=== PATIENT | female | born 1940 | race Caucasian/White ===

== ENCOUNTER 2017-07-12 18:51 | Inpatient (IN) | payer MEDICARE, MEDICAID, SELFPAY ==
[2017-07-12 18:56] VITALS: BP 147/97; PULSE 155; RESP 17; TEMP 37.1; O2SAT 100; BMI 35.6
[2017-07-12 19:02] VITALS: BP 142/64; PULSE 155; RESP 19; O2SAT 82; O2SAT 99
--- NOTE | 2017-07-12 19:21 | NURSING ---
RN CALLED FOR EKG, NO OLD EKG'S IN MUSE
[2017-07-12 19:49] VITALS: BP 155/107; PULSE 153; RESP 20; O2SAT 96
--- NOTE | 2017-07-12 19:49 | EKG12_ITS ---
Test Reason : REPEAT Blood Pressure : / mmHG Vent. Rate : 154 BPM Atrial Rate : 156 BPM P-R Int : 136 ms QRS Dur : 080 ms QT Int : 312 ms P-R-T Axes : 060 033 162 degrees QTc Int : 499 ms Atrial flutter with 2:[address] & T wave abnormality, consider inferolateral ischemia Abnormal ECG Confirmed by TORRES HERNANDEZ ([id number]), sound editor VELMA GIL ([id number]) on 07/15/2017 2:29:02 PM Referred By: ANTELMO Confirmed By:TORRES HERNANDEZ
--- NOTE | 2017-07-12 19:51 | ED.VISSUMM ---
- ER Visit Summary Date of Service: 07/12/17 Chief Complaint: Cough History of Present Illness: The patient is a 76 F who was on hospice up until tonight who presents for cough and family concerned that she has an infection. He is requesting a second opinion. Patient is in hospice care for an unknown reason per the family, denying any history of cancer but thinking it is because of possible dementia and being nonambulatory. History is provided by the daughters, and they state their father signed the patient out of hospice [facility] so that they could bring her to the emergency department for a second opinion. She has a history of pneumonia, a pancreas infection earlier this year, and has been coughing up green sputum for 2 days. They also states she has been reaching and grabbing for things that are not there and try to get out of bed. She has not been eating or drinking for 2 days. Patient has a history of diabetes and hypertension. Family believes she has history of dementia. Chart review and further history from the hospice nurse show that the patient was admitted to hospice for metabolic encephalopathy, chronic pancreatitis, acute kidney injury and bradycardia. Hospice was revoked by the boy and they state she can return to hospice tomorrow if the family changes their mind. Patient is DNR Comfort Care as reflected in the paperwork. Physical Examination: Vital signs: afebrile, tachycardic at 155, hemodynamically stable, no hypoxia on room air General: well nourished, well developed, obese, in no distress, laying in bed reaching randomly into the air, not answering questions Skin: warm, dry, no rash, no pallor HEENT: normocephalic and atraumatic; PERRL, EOMI, dry mucous membranes Cardiovascular: tachycardic rate and regular rhythm without murmurs noted, no peripheral edema, 2+ pulses all distal extremities Respiratory: No increased work of breathing, lungs are clear to auscultation bilaterally, no rales, rhonchi or wheezing noted Abdominal: Abdomen is soft, nontender with normoactive bowel sounds, no guarding or rebound, no masses appreciated, exam limited 2/2 habitus MSK: Moves all extremities, no deformities Neuro: Awake and alert, not oriented. No facial droop, sensation and motor function intact and symmetric Test Results: Emergency Department Course and Treatment: Abnormal Lab Results 03/19/18 03/19/18 03/19/18 19:15 19:15 21:25 WBC 8.3 RBC 4.60 Hgb 13.1 Hct 40.6 MCV 88.3 MCH 28.5 MCHC 32.3 RDW 21.1 H RDW Differential 68.1 H Plt Count 257 MPV 11.4 Immature Gran % (Auto) 0.600 Neut % (Auto) 65.5 Lymph % (Auto) 19.6 [place] % (Auto) 13.1 H Eos % (Auto) 1.0 Baso % (Auto) 0.2 Absolute Neuts (auto) 5.5 Absolute Lymphs (auto) 1.63 Total Counted Not Reportable Differential Comment SCANNED Platelet Estimate ADEQUATE Anisocytosis 3+ PT INR APTT Sodium 137 Potassium 4.1 Chloride 105 Carbon Dioxide 20.0 L Anion Gap 12 BUN 12 Creatinine 0.78 Estim Creat Clear Calc 43.07 Est GFR (MDRD) Af Amer 92 Est GFR (MDRD) Non-Af 76 BUN/Creatinine Ratio 15.4 Glucose 212 H Lactic Acid Calcium 9.5 Total Bilirubin 0.80 AST 37 ALT 28 Alkaline Phosphatase 89 Troponin I 0.02 Total Protein 7.2 Albumin 2.8 L Globulin 4.4 H Albumin/Globulin Ratio 0.6 L Urine Color Yellow Urine Clarity Cloudy Urine pH 5.0 Ur Specific [place] 1.030 Urine Protein 15 H Urine Glucose (UA) 100 H Urine Ketones 15 H Urine Occult Blood 250 H Urine Nitrite Positive H Urine Bilirubin Negative Urine Urobilinogen Normal Ur Leukocyte Esterase 100 H Urine RBC 0-5 SEEN Urine WBC 5-10 SEEN Ur Squamous Epith Cells 0-5 SEEN Urine Bacteria 3+ Hyaline Casts 0-5 SEEN Urine Mucus 0 SEEN Urine Yeast RARE 07/12/17 07/12/17 21:50 21:50 WBC RBC Hgb Hct MCV MCH MCHC RDW RDW Differential Plt Count MPV Immature Gran % (Auto) Neut % (Auto) Lymph % (Auto) [place] % (Auto) Eos % (Auto) Baso % (Auto) Absolute Neuts (auto) Absolute Lymphs (auto) Total Counted Differential Comment Platelet Estimate Anisocytosis PT 15.1 H INR 1.2 APTT 26.8 Sodium Potassium Chloride Carbon Dioxide Anion Gap BUN Creatinine Estim Creat Clear Calc Est GFR (MDRD) Af Amer Est GFR (MDRD) Non-Af BUN/Creatinine Ratio Glucose Lactic Acid 2.5 H Calcium Total Bilirubin AST ALT Alkaline Phosphatase Troponin I Total Protein Albumin Globulin Albumin/Globulin Ratio Urine Color Urine Clarity Urine pH Ur Specific [place] Urine Protein Urine Glucose (UA) Urine Ketones Urine Occult Blood Urine Nitrite Urine Bilirubin Urine Urobilinogen Ur Leukocyte Esterase Urine RBC Urine WBC Ur Squamous Epith Cells Urine Bacteria Hyaline Casts Urine Mucus Urine Yeast Treatment Plan: Patient presents with altered mental status and odd behavior from the intermediate facility with the family requesting a second opinion since the are not sure that patient should be in hospice. We had a long discussion about CODE STATUS and the fact the patient is still DNR Comfort Care, and we discussed that heroic measures would not be taken for this order. The family agreed that that was the patient's wish and they knew she was DNR. Patient received a workup for concern for infection, as she is acting consistent with delirium and is tachycardic. EKG showed sinus tachycardia at a rate around 150, however the EKG did not look like SVT or a flutter 2:1. Patient was given IV fluids. Because of her level of agitation and family concern, patient was given a dose of Haldol without any improvement. Patient receives Ativan regularly as part of her medications, and thus was given a dose without improvement either. Chest x-ray showed no pneumonia. UA was positive for infection. Patient was started on cefepime sepsis protocol. Cultures pending. Patient had no leukocytosis but did have elevated lactate of 2.5. Patient remained normotensive despite remaining tachycardic as well. Chart review did show concern for cholecystitis and there was no documented surgical intervention, thus CT of the abdomen was performed to evaluate for intra-abdominal pathology as well. Given that the family is not comfortable with the patient being in hospice at this time and they do want intervention for her current infection, she will be admitted to the hospitalist service for treatment for her UTI and severe sepsis. No further intervention for the tachycardia was performed, as my professional opinion is it is sinus tachycardia associated with her underlying infection other than any mention SVT, and aggressive treatment of any arrhythmia would go against DNR Comfort Care in hemodynamically stable patient. PATIENT admitted to [facility] for IV antibiotics and fluids. Disposition: [] Impression: UTI, severe sepsis, sinus tachycardia, delirium, DNR-comfort care This note was generated with [employer] software. It may contain incorrect words, spelling, and punctuation that were not noted in review of the chart prior to signing ED Disposition - Plan for ED Patient: Chief Complaint: Shortness of Breath Referrals: [facility] Doctor,Out of [Primary Care Provider] -
--- NOTE | 2017-07-12 19:54 | RAD_ITS ---
XR Chest 1 View INDICATION: cough with sob COMPARISON: None FINDINGS: Heart size and pulmonary vascularity are within normal limits. The lungs appear mildly hyperinflated bilaterally. The lungs are clear without evidence of airspace consolidation or pleural effusion. The osseous structures are grossly unremarkable. RAD/Chest 1 View (Portable) IMPRESSION: No radiographic evidence of acute intrathoracic disease. at 2023 Reported and signed by: Ema Pascual MD Electronically Signed: Ema Pascual MD at 19:22 EDT Tel , Service support ,
[2017-07-12 20:12] VITALS: O2SAT 98
[2017-07-12] MEDS: Lactated Ringers 1,000 ML 250 ML IV (20:14)
[2017-07-12 20:41] LABS: Absolute Lymphocyte Count 1.63 X10^3/ul (0.83-4.51); Absolute Neutrophil Count 5.5 X10^3/uL (2.0-7.7); Basophil# 0.02 X10^3/uL; Basophil% 0.2 % (0-1); Eosinophil# 0.08 X10^3/uL; Hematocrit 40.6 % (37-47); Hemoglobin 13.1 g/dl (12.0-15.0); Lymphocyte # 1.63 X10^3/ul (4.0); Lymphocyte % 19.6 % (19-41); Mean Corp Hgb Conc 32.3 g/gl (32-36); Mean Corpuscular Hgb 28.5 pg (27.0-32.0); Mean Corpuscular Volume 88.3 fL (81-99); Mean Platelet Vol. 11.4 fl (6.2-12.0); Monocyte# 1.09 X10^3/uL; Monocyte% 13.1 % (0-10); Neutrophil # 5.46 X10^3/uL (2.7-7.7); Neutrophil % 65.5 % (47-70); Platelet Count 257 K/mm3 (150-450); RBC Distribution Width CV 21.1 % (11.6-14.6); RBC Distribution Width SD 68.1 fl (35.1-43.9); White Blood Count 8.3 K/mm3 (4.4-11.0)
[2017-07-12 20:42] LABS: Differential Indicated SCAN CRITERIA MET; POSITIVE COUNT NO; POSITIVE DIFFERENTIAL NO; POSITIVE MORPHOLOGY YES
[2017-07-12 20:50] LABS: ALB/GLOB Ratio 0.6 RATIO (0.9-2.4); AST(SGOT) 37 U/L (15-37); Alanine Aminotransfer ALT/SGPT 28 U/L (13-56); Albumin, Serum 2.8 g/dL (3.2-5.0); Alkaline Phosphatase 89 U/L (45-117); Anion Gap 12 (5-15); BUN 12 mg/dL (7-18); BUN/Creat Ratio 15.4 RATIO (10-20); Calcium,Total 9.5 mg/dL (8.5-10.1); Chloride 105 mmol/L (98-107); Creatinine, Serum 0.78 mg/dL (0.55-1.02); EST Glomerular Filtration Rate 76 mL/min (>60); Est Glom Filt Rate - Afr Amer 92 mL/min (>60); Estimated Creatinine Clearance 43.07 ml/min; Globulin 4.4 g/dL (2.2-4.2); Glucose 212 mg/dL (74-106); Potassium 4.1 mmol/L (3.5-5.1); Protein, Total 7.2 g/dL (6.4-8.2); Sodium Level 137 mmol/L (136-145)
[2017-07-12] MEDS: Haloperidol Lactate 5 MG/ML Vial 2 MG IV (21:03)
[2017-07-12 21:07] LABS: Differential Comment SCANNED; Platelet Estimate ADEQUATE (ADEQ)
[2017-07-12 21:08] LABS: Anisocytosis 3+
[2017-07-12 21:28] LABS: Mucous, Urine 0 SEEN /hpf (<or=2+)
[2017-07-12 21:29] LABS: Color, Urine Yellow (Yellow); Glucose, Dipstick 100 mg/dl (Normal); Ketone-Dipstick 15 mg/dl (Negative); Leukocyte Esterase-Dipstick 100 /ul (Negative); Nitrite-Dipstick Positive (Negative); Occult Blood-Urine 250 /ul (Negative); Protein-Dipstick 15 mg/dl (Negative); Urine Bilirubin Dipstick Negative (Negative); Urine Clarity Cloudy (Clear); Urine Urobilinogen Normal (Normal)
--- NOTE | 2017-07-12 21:30 | ED.RN ---
called lab to inquire about coming to draw blood- states they are still planning to come.
[2017-07-12 21:39] LABS: Bacteria 3+ /hpf (None Seen); Hyaline Cast 0-5 SEEN /lpf (0-5); Red Blood Cells-Urine 0-5 SEEN /hpf (0-5); Squamous Epithelial Cells - UA 0-5 SEEN /hpf (5-10); White Blood Cells 5-10 SEEN /hpf (0-5); Yeast-Urine RARE /hpf (None Seen)
[2017-07-12 21:41] VITALS: BP 138/89; PULSE 156
--- NOTE | 2017-07-12 22:04 | EKG12_ITS ---
Test Reason : SO Blood Pressure : / mmHG Vent. Rate : 152 BPM Atrial Rate : 152 BPM P-R Int : 116 ms QRS Dur : 076 ms QT Int : 296 ms P-R-T Axes : 067 051 161 degrees QTc Int : [address] & T wave abnormality, consider inferolateral ischemia Abnormal ECG Confirmed by TORRES HERNANDEZ ([id number]), editor index VELMA GIL ([id number]) on 07/15/2017 2:28:24 PM Referred By: ANTELMO Confirmed By:TORRES HERNANDEZ
[2017-07-12] MEDS: LORazepam 2 MG/ML Syringe 0.5 MG IV (22:11)
[2017-07-12 22:14] LABS: International Normalized Ratio 1.2; Prothrombin Time (Protime)PT. 15.1 SECONDS (11.7-14.9)
[2017-07-12 22:15] LABS: Partial Thromboplast Time 26.8 Seconds (24.1-36.2)
--- NOTE | 2017-07-12 22:33 | ED.RN ---
LAB CALLS WITH CRITICAL RESULT, LACTIC ACID 1.25, DR. DOVER MADE AWARE.
[2017-07-12 22:34] LABS: Lactic Acid 2.5 mmol/L (0.4-2.0)
--- NOTE | 2017-07-12 22:39 | CT_ITS ---
CT Head or Brain W/O Contrast INDICATION: ALTERED MENTAL STATUS,NON AMBULATORY SINCE EARLY JUNE,ELEVATED BPHX:HTN,DIABETES,PANCREATITIS,CHOLECYSTEC-GAMALIEL COMPARISON: None TECHNIQUE: Noncontrast axial CT examination of the brain. Radiation dose optimization applied. FINDINGS: The ventricular system is normal in size and symmetric. The cortical sulci, sylvian fissures, and basal cisterns are well seen. The jimenez-white matter junction is distinct. There is no evidence of acute intracranial hemorrhage, mass effect, midline shift, or abnormal extra-axial collection. The calvarium is intact and the visualized paranasal sinuses and mastoid air cells are clear. CT/Brain/Head without Contrast IMPRESSION: No evidence of acute intracranial abnormality by noncontrast CT. at 0034 Reported and signed by: Ema Pascual MD Electronically Signed: Ema Pascual MD at 23:32 EDT Tel , Service support ,
--- NOTE | 2017-07-12 22:39 | CT_ITS ---
STUDY: CT ABDOMEN AND PELVIS WITH CONTRAST REASON FOR EXAM: Female, 76 years old. Altered mental status. Elevated blood pressure. History of diabetes and pancreatitis. RADIATION DOSAGE (If Supplied By Facility): CTDIvol = ( 24.16 ) mGy, DLP = ( 1273.50 ) mGycm TECHNIQUE: Transaxial images were obtained from the dome of the diaphragm to the symphysis pubis without oral contrast. 100ML ml of Isovue 300 contrast was administered. Sagittal and coronal images were reconstructed. Individualized dose optimization techniques were used for this CT. COMPARISON: None. FINDINGS: The visualized lung bases are unremarkable. The heart is not enlarged. Coronary artery calcifications. No pericardial effusion. Normal liver. There is non-visualization of the gallbladder, which may be secondary to either contraction or a prior cholecystectomy. Normal spleen. Normal pancreas. Normal bilateral adrenal glands. Bilateral parapelvic renal cysts. Bilateral subcentimeter cortical cysts. Normal visualized stomach. Normal small intestine. Normal colon. The appendix is visualized. There is calcium within the lumen and otherwise the appendix appears normal. The appendix is not enlarged. No periappendiceal inflammatory changes. There is atherosclerotic calcification of the abdominal aorta and common iliac arteries, with mild dilatation of the common iliac arteries measuring 1.1 cm on the right and 1.3 cm on the left. Normal inferior vena cava. Normal retroperitoneum. No intra-abdominal free air. Normal urinary bladder. Aside from a few scattered small calcified uterine fibroids, the uterus is grossly normal. No adnexal mass is seen. Normal abdominal wall. Degenerative changes of the lower thoracic spine. CT/Abdomen/Pelvis W IV Cont ONLY IMPRESSION: No acute findings in the abdomen or pelvis. Coronary artery calcifications. Bilateral renal cysts. Mild dilatation of the common iliac arteries. Small calcified uterine fibroids. No evidence of bowel obstruction. Appendix is not enlarged. Electronically Signed: Wu Narayan MD at 1:55 EDT , Service support ,
[2017-07-12 23:39] VITALS: BP 134/93; PULSE 145; RESP 22; O2SAT 97
--- NOTE | 2017-07-12 23:46 | PCM.HP.STD ---
Problem List (1) UTI (urinary tract infection) Status: Acute Qualifiers: Urinary tract infection type: site unspecified (2) Sepsis Status: Acute Qualifiers: Sepsis type: sepsis due to unspecified organism Qualified Code(s): A41.9 - Sepsis, unspecified organism (3) Encephalopathy Status: Acute (4) Diabetes Status: Chronic (5) Hypertension Status: Chronic (6) Sinus tachycardia Status: Acute History of Present Illness Date of Admission: 07/12/17 Chief Complaint: altered mental status The patient is a 76 year old female patient presents to the ER with altered mental status. The patient has had a decline in her overall health over the past month. Today she was transferred to the ER after revoking hospice to receive treatment for her confused state. Apparently her did not understand why she was on hospice and wanted her to receive full treatment. To my understanding from her daughters x 2 she has been in a longterm for the past two weeks and has been encephalopathic the entire time. When she was discharged from [facility] was determined that she met criteria for hospice care. The younger daughter believes her hospitalization previously was the result of profound hyperglycemia and she admits that she has not been the same since that event. Tonight she does have sinus tachycardia at 150 BPM, she remains confused and arousable, her WBC count is elevated as is her lactate at 2.5. The patient UA is grossly positive for UTI. She has been receiving Haldol and Ativan at the longterm. This evening she has received more Haldol due to her restless agitation ,however, it was unhelpful. Due to her restless agitation she will be admitted to PCU for treatment of UTI with sepsis. Upon re-evaluation after treatment perhaps she can be re-assessed for her appropriateness for hospice care. Past Medical History Past Medical History (Chronic Problems): Chronic Problems Diabetes (Chronic) Hypertension (Chronic) Allergies acetaminophen [From Tylenol-Codeine] Allergy (Verified 07/12/17 22:05) Other codeine [From Tylenol-Codeine] Allergy (Verified 07/12/17 22:05) Other Home Medications: Ambulatory Orders Medication Instructions Recorded Calcium Carbonate/Vitamin D3 1 each PO BID 07/12/17 [Calcium 600 + Vit D Caplet] Haloperidol [Haldol] 5 mg PO BID 07/12/17 Insulin Glargine,Hum.rec.anlog 10 unit SC DAILY 07/12/17 [Lantus] Levothyroxine Sodium [Synthroid] 100 mcg PO DAILY 07/12/17 Lorazepam [Ativan] 0.5 mg PO BID 07/12/17 Losartan Potassium [Cozaar] 25 mg PO DAILY 07/12/17 Magnesium Oxide [Magnesium] 400 mg PO DAILY 07/12/17 Melatonin 5 mg PO QHS 07/12/17 Novolog Flexpen 07/12/17 Oxycodone HCl [Oxycontin] 10 mg PO 07/12/17 Potassium Chloride [K-Dur] 20 meq PO DAILY 07/12/17 Simvastatin [Zocor] 10 mg PO QHS 07/12/17 Smoking Status: Never smoker - *Family History Maternal History Items: No pertinent history Review of Systems Unable to obtain accurate/complete ROS d/t: patient is a poor historian and unable to communicate with me VTE Information - Inpt Only VTE Present on Admission: No VTE Mechan Device Prophylaxis: None VTE Pharm Prophylaxis ordered?: Yes Patient Problems: Active and Suspected Problems UTI (urinary tract infection) (Acute) Sepsis (Acute) Encephalopathy (Acute) Sinus tachycardia (Acute) - Physical Exam General: Alert, Confused, Disoriented, Non-Cooperative HEENT: Atraumatic, PERRLA, Normocephalic Neck: Supple Lungs: Clear to auscultation, Normal air movement, No rhonchi, No wheeze, No rales Cardiovascular: Normal S1, Normal S2, No murmurs, Tachycardic Abdomen: Bowel Sounds Present, Soft, Non Tender, Obese Extremities: No edema, Capillary Refill Less than 3 Seconds Skin: No rashes Musculoskeletal: No Tenderness to Palpation of Joints or Extremities Neurological: Slurred Speech, - - psychomotor agitation present Psych/Mental Status: Agitated, Irrational Behavior Vital Signs Temp Pulse Resp BP Pulse Ox 98.8 F 145 H 22 H 134/93 H 97 07/12/17 18:56 07/12/17 23:39 07/12/17 23:39 07/12/17 23:39 07/12/17 23:39 Oxygen Flow Rate (L/min) 2 Oxygen Delivery Method Room Air Weight: 214 lb 8.156 oz Body Mass Index (BMI) 35.6 Laboratory Tests Past 24 Hrs 07/12/17 07/12/17 07/12/17 19:15 19:15 21:25 WBC 8.3 RBC 4.60 Hgb 13.1 Hct 40.6 MCV 88.3 MCH 28.5 MCHC 32.3 RDW 21.1 H RDW Differential 68.1 H Plt Count 257 MPV 11.4 Immature Gran % (Auto) 0.600 Neut % (Auto) 65.5 Lymph % (Auto) 19.6 [place] % (Auto) 13.1 H Eos % (Auto) 1.0 Baso % (Auto) 0.2 Absolute Neuts (auto) 5.5 Absolute Lymphs (auto) 1.63 Total Counted Not Reportable Differential Comment SCANNED Platelet Estimate ADEQUATE Anisocytosis 3+ PT INR APTT Sodium 137 Potassium 4.1 Chloride 105 Carbon Dioxide 20.0 L Anion Gap 12 BUN 12 Creatinine 0.78 Estim Creat Clear Calc 43.07 Est GFR (MDRD) Af Amer 92 Est GFR (MDRD) Non-Af 76 BUN/Creatinine Ratio 15.4 Glucose 212 H Lactic Acid Calcium 9.5 Total Bilirubin 0.80 AST 37 ALT 28 Alkaline Phosphatase 89 Troponin I 0.02 Total Protein 7.2 Albumin 2.8 L Globulin 4.4 H Albumin/Globulin Ratio 0.6 L Urine Color Yellow Urine Clarity Cloudy Urine pH 5.0 Ur Specific [place] 1.030 Urine Protein 15 H Urine Glucose (UA) 100 H Urine Ketones 15 H Urine Occult Blood 250 H Urine Nitrite Positive H Urine Bilirubin Negative Urine Urobilinogen Normal Ur Leukocyte Esterase 100 H Urine RBC 0-5 SEEN Urine WBC 5-10 SEEN Ur Squamous Epith Cells 0-5 SEEN Urine Bacteria 3+ Hyaline Casts 0-5 SEEN Urine Mucus 0 SEEN Urine Yeast RARE 07/12/17 07/12/17 21:50 21:50 WBC RBC Hgb Hct MCV MCH MCHC RDW RDW Differential Plt Count MPV Immature Gran % (Auto) Neut % (Auto) Lymph % (Auto) [place] % (Auto) Eos % (Auto) Baso % (Auto) Absolute Neuts (auto) Absolute Lymphs (auto) Total Counted Differential Comment Platelet Estimate Anisocytosis PT 15.1 H INR 1.2 APTT 26.8 Sodium Potassium Chloride Carbon Dioxide Anion Gap BUN Creatinine Estim Creat Clear Calc Est GFR (MDRD) Af Amer Est GFR (MDRD) Non-Af BUN/Creatinine Ratio Glucose Lactic Acid 2.5 H Calcium Total Bilirubin AST ALT Alkaline Phosphatase Troponin I Total Protein Albumin Globulin Albumin/Globulin Ratio Urine Color Urine Clarity Urine pH Ur Specific [place] Urine Protein Urine Glucose (UA) Urine Ketones Urine Occult Blood Urine Nitrite Urine Bilirubin Urine Urobilinogen Ur Leukocyte Esterase Urine RBC Urine WBC Ur Squamous Epith Cells Urine Bacteria Hyaline Casts Urine Mucus Urine Yeast Assessment/Plan Active and Suspected Problems UTI (urinary tract infection) (Acute) Sepsis (Acute) Encephalopathy (Acute) Sinus tachycardia (Acute) Plan - admit to progressive care unit - Rocephin 1 gram IV q 24hrs - sepsis protocol - cbc, bmp in am - obtain records from [facility] to assist with understanding her overall diagnosis and prognosis - hold PO medications tonight - will increase seroquel this evening to assist with her agitation and restlessness and try to avoid benzodiazepines as they may be adding to her confusion Code Visit Inpatient E&M: [id number] Init Hosp L3
[2017-07-13 00:16] VITALS: TEMP 36.3
--- NOTE | 2017-07-13 01:26 | NURSING ---
Lisseth, Nursing In File Operator, advised me that this pt is a DNR and that they are to be placed on medsurg not PCU. Will followup on status.
[2017-07-13 01:34] VITALS: PULSE 150; BMI 34.9
[2017-07-13 02:02] LABS: Reflex Lactate? Y
[2017-07-13 02:06] LABS: Bedside Glucose 198 mg/dL (70-110)
[2017-07-13 03:22] LABS: Lactic Acid 1.4 mmol/L (0.4-2.0)
[2017-07-13 06:22] LABS: Hemoglobin 11.3 g/dl (12.0-15.0); Mean Corp Hgb Conc 32.3 g/gl (32-36); Mean Corpuscular Hgb 28.6 pg (27.0-32.0); Mean Corpuscular Volume 88.6 fL (81-99); Mean Platelet Vol. 11.2 fl (6.2-12.0); Platelet Count 233 K/mm3 (150-450); RBC Distribution Width CV 20.9 % (11.6-14.6); RBC Distribution Width SD 66.6 fl (35.1-43.9); Red Blood Count 3.95 M/mm3 (4.2-5.4); White Blood Count 6.2 K/mm3 (4.4-11.0)
[2017-07-13 06:25] LABS: Scan Indicated on CBC? Y/N YES- FLAGS NOTED
[2017-07-13 06:26] LABS: Anion Gap 9 (5-15); BUN 10 mg/dL (7-18); BUN/Creat Ratio 14.5 RATIO (10-20); Calcium,Total 9.2 mg/dL (8.5-10.1); Chloride 105 mmol/L (98-107); Creatinine, Serum 0.69 mg/dL (0.55-1.02); EST Glomerular Filtration Rate 88 mL/min (>60); Est Glom Filt Rate - Afr Amer 107 mL/min (>60); Estimated Creatinine Clearance 43.07 ml/min; Glucose 180 mg/dL (74-106); Potassium 3.5 mmol/L (3.5-5.1); Sodium Level 138 mmol/L (136-145)
[2017-07-13 06:33] LABS: Differential Comment SCANNED
--- NOTE | 2017-07-13 06:59 | NURSING ---
Patient remains restless pulling at tubing. Daughter @ bedside awakened and asked to sit up watch patient. Daughter now @ bedside sitting holding hand.
[2017-07-13 08:20] VITALS: BP 141/82; PULSE 141; RESP 18; TEMP 37; O2SAT 95
[2017-07-13] MEDS: Enoxaparin 40 MG/0.4 ML Syringe SC (10:53)
[2017-07-13 12:11] LABS: Bedside Glucose 194 mg/dL (70-110)
[2017-07-13 12:44] VITALS: O2SAT 92
--- NOTE | 2017-07-13 14:15 | PCM.TXEXTCAR ---
- Diet 07/13/17 00:03 Diet: Nothing Per Oral - Routine Orders/Code Status Code Status: DNRCC - Wound(s) abd Wound Type: old surgery scars, scratches - Problem/Diagnosis (1) Dementia Status: Chronic Current Visit: Yes (2) UTI (urinary tract infection) Status: Acute Comment: gram negative bacterial Current Visit: Yes (3) Sepsis Status: Acute Current Visit: Yes (4) Diabetes Status: Chronic Current Visit: Yes (5) Sinus tachycardia Status: Acute Current Visit: Yes - Allergies/Procedures Done in Hospital Allergies/Adverse Reactions: Allergies acetaminophen [From Tylenol-Codeine] Allergy (Verified 07/12/17 22:05) Other codeine [From Tylenol-Codeine] Allergy (Verified 07/12/17 22:05) Other Procedures: None - Type of Care/Length of Stay Estimated LOS: More Than 30 Days Type of Care Needed: Intermediate Rehab Potential: Poor Prognosis: Poor - Additional Orders/Day of Discharge H&P will serve as current which was dated: 07/12/17 Day of Discharge: 07/13/17 - Follow Up Care Primary Care Physician: Christiano Cardenas,Out of [NON-STAFF] - Please Follow Up With: [facility]
--- NOTE | 2017-07-13 15:10 | CASEMGMT ---
Social Work Note Placed call to Liliam at [facility]. Informed that the pt will be discharging back to their facility with hospice. Confirm with Liliam that the pt is with [facility]. Liliam requests that a referral be faxed to them as they are requesting that hospice come to evaluate her tonight. Will fax completed discharge paperwork to [facility] and setup transport once transfer documentation completed. Initial referral faxed to [facility]. Plan: Return to [facility] with [facility] resumed. Maren Norton, MARINE EQUIPMENT ENGINEER, PHONOGRAPH MECHANIC
--- NOTE | 2017-07-13 15:28 | CASEMGMT ---
Social Work Note Plan is for pt to return to [facility] and resume hospice services as family declined peg placement. Updated Liliam and informed that SW would notify of discharge. Transfer summary faxed to SNF and called Liliam to notify that pt would be discharged with no diet and no medlist because of this. Lliiam states that they cannot accept the pt back without a diet and medications before they are able to accept. Placed call to [facility]. Spoke with Diana who states she is trying to contact the pt's spouse and is unable to locate him. Once she confirms that he would like hospice reestablished pt can discharge. Transport setup through [facility] via cot at 1630. Will wait to cancel until hear back from hospice. SW to continue to follow and assist with discharge planning. Maren Norton, MAINFRAME SYSTEMS ENGINEER, DAIRY HUSBANDRY WORKER
--- NOTE | 2017-07-13 16:17 | CASEMGMT ---
Social Work Note Call from Diana with [facility] stating that they will meet the pt between 1700 and 1730 at [facility]. Placed call to Liliam and left two voicemails on her work phone and cell phone indicating that pt would be returning and hospice was to meet with them this evening. Transport setup through [facility] via cot at 1645. Plan: [facility] via cot at 1645. Maren Norton, DELINQUENCY PREVENTION SOCIAL WORKER, PROCESS VALIDATION ENGINEER
--- NOTE | 2017-07-13 16:36 | NURSING ---
report called to Alize at [facility].
--- NOTE | 2017-07-13 16:46 | CHAPLAIN ---
Type of Pastoral Visit _x__ Initial Visit ___ Follow-up Visit ___ On-call Visit ___ General Patient Visit ___ Spiritual Assessment ___ Family Conference ___ Bereavement ___ Rapid Response ___ Code Blue ___ Other (describe below) Pastoral Care Referral From ___ Patient _x__ Family ___ Nurse ___ Physician ___ Customer Program Specialist ___ Show Host ___ Other (describe below) Sacrament/Intervention _x__ Active listening ___ Anointing ___ Sikh ___ Bereavement ___ Communion ___ Nereida exploration ___ _x__ Life review _x__ Prayer ___ Reconciliation ___ Sacrament of Sick _x__ Supportive presence ___ Wedding ___ Other (describe below) Pastoral Comments patient acknowledged my presence but did not speak; spouse and several children in room; spouse talks about pt impending and spiritual condition/hope; family welcomes prayer; daughters are crying; support and presence given; no indication that in imminent but spouse speaks about hospice care
--- NOTE | 2017-07-15 18:24 | PCM.DC.SUM ---
Discharge Date and Diagnosis Date of Admission: 07/12/17 Date of Discharge: 07/13/17 - Primary Discharge Diagnosis #1 acute severe sepsis secondary to acute cystitis #2 acute cystitis-secondary to gram-negative bacteria #3 end-stage dementia - Secondary Discharge Diagnosis Chronic Problems Diabetes (Chronic) Hypertension (Chronic) Dementia (Chronic) Hospital Course and Treatment Operations: None Procedures: None Summary of Care Provided: The patient is a 76 year old F who was seen in the emergency room at [facility] after being transported from a local extended care facility for increasing lethargy. Patient was under hospice care at the intermediate facility and the patient's family decided to revoked the hospice care and have the patient transported in for evaluation. Evaluation in the emergency room showed normal white blood cell count, urinalysis indicated a urinary tract infection, her lactic acid was elevated, and she met criteria for severe sepsis. Patient was admitted to [place] [address], she was given IV antibiotics in the emergency room, she became more agitated while on the floor and pulled out her IV access and she remained extremely confused. I had a long discussion with the patient's family including her sons, daughters, and , it was felt that the patient should go back on hospice at her extended care facility. She was seen by speech therapy before she was discharged back to her facility and it was noted that she was not safe to take any oral medications. Family agreed with end-of-life care and was comfortable with the patient going back on no antibiotics or fluids. On 07/13/17, patient was seen and examined and felt to be in stable condition for transfer back to the intermediate for terminal care. Primary Care Physician: Christiano Cardenas,Out of [NON-STAFF] - Please Follow Up With[facility] Disposition: [facility] facility Minutes spent on discharge:: 32 Patient Condition:: Stable Medical Necessity - Tobacco Use Smoking Status: Never smoker Meaningful Use Info Meaningful Use Diagnoses (Choose all that apply): None applicable Code Visit Inpatient E&M: 49832 Disch Hosp
--- NOTE | 2017-07-15 18:33 | DS.PCM_ITS ---
Discharge Date and Diagnosis Date of Admission: 07/12/17 Date of Discharge: 07/13/17 - Primary Discharge Diagnosis #1 acute severe sepsis secondary to acute cystitis #2 acute cystitis-secondary to gram-negative bacteria #3 end-stage dementia - Secondary Discharge Diagnosis Chronic Problems Diabetes (Chronic) Hypertension (Chronic) Dementia (Chronic) Hospital Course and Treatment Operations: None Procedures: None Summary of Care Provided: The patient is a 76 year old F who was seen in the emergency room at [facility] after being transported from a local extended care facility for increasing lethargy. Patient was under hospice care at the halfway facility and the patient's family decided to revoked the hospice care and have the patient transported in for evaluation. Evaluation in the emergency room showed normal white blood cell count, urinalysis indicated a urinary tract infection, her lactic acid was elevated, and she met criteria for severe sepsis. Patient was admitted to [place] [address], she was given IV antibiotics in the emergency room, she became more agitated while on the floor and pulled out her IV access and she remained extremely confused. I had a long discussion with the patient's family including her sons, daughters, and , it was felt that the patient should go back on hospice at her extended care facility. She was seen by speech therapy before she was discharged back to her facility and it was noted that she was not safe to take any oral medications. Family agreed with end-of-life care and was comfortable with the patient going back on no antibiotics or fluids. On 07/13/17, patient was seen and examined and felt to be in stable condition for transfer back to the halfway for terminal care. Primary Care Physician: Christiano Cardenas,Out of [NON-STAFF] - Please Follow Up With: [facility] Disposition: [facility] facility Minutes spent on discharge:: 32 Patient Condition:: Stable Medical Necessity - Tobacco Use Smoking Status: Never smoker Meaningful Use Info Meaningful Use Diagnoses (Choose all that apply): None applicable Code Visit Inpatient E&M: 72523 Disch Hosp
== END 2017-07-13 16:47 | disposition hospice, inpatient (51) | DRG 871 ==
LOC: ED 20:43 → MS3 07-13 00:35
PROVIDERS: Admitting Provider Family Medicine; Emergency Provider Emergency Medicine; Family Provider Internal Medicine; PCP Internal Medicine; Visit Provider Internal Medicine
DX: A41.9 Sepsis, unspecified organism (principal); G93.40 Encephalopathy, unspecified; F03.90 Unspecified dementia, unspecified severity, without behavioral disturbance, psychotic disturbance, mood disturbance, and anxiety; E11.9 Type 2 diabetes mellitus without complications; N30.00 Acute cystitis without hematuria; R65.20 Severe sepsis without septic shock; B96.89 Other specified bacterial agents as the cause of diseases classified elsewhere; Z66 Do not resuscitate; Z51.5 Encounter for palliative care; I10 Essential (primary) hypertension
CPT/HCPCS: 36415; 70450; 71045; 74177; 80048; 80053; 81001; 82962; 83605; 84484; 85025; 85027; 85610; 85730; 87040; 87077; 87086; 87088; 87186; 93005; 97161; 97162; 97165; 97802; 99285; J7030; J7040; J7120; Q9967